=== PATIENT | male | born 1975 | race Two or more races ===

== ENCOUNTER 2016-07-07 12:03 | Inpatient (IN) | payer OTHER ==
--- NOTE | 2016-07-07 12:33 | ED Physician Chart ---
Chief Complaint/HPI - Patient Information Date Seen:: 07/07/16 Time Seen:: 12:15 Chief Complaint:: sent from office of Dr. Tatum for SOB, chest pain, tachycardia History of Present Illness:: Pt. put on Lisinopril recently for HTN and recently started on insulin went for F/U with Dr. Tatum. He was sent to ER with note from Dr. Tatum: "Pt. presents with BP 160/101, HR 120, with occasional SOB/CP. Plz eval further , Thank you." Pt. states he had abnl. "blood work" drawn 2 weeks ago. HR is now 103. Initial EKG shows sinus tach with nl. axis and "ST elev, probable normal early repol pattern". No obvious J-point elevation in contiguous leads and no chest pain at this time. Allergies:: Allergies Allergy/AdvReac Type Severity Reaction Status Date / Time No Known Allergies Allergy Verified 07/07/16 12:27 Historian:: Patient, Medical Records (Note from in Hx P I.) Review of Systems - Review of Systems General/Constitutional: No fever Skin: No skin lesions Eyes: No loss of vision ENT: No earache Neck: No neck pain Cardio Vascular: Chest pain, No palpitations Pulmonary: SOB (No SOB now, pt. states SOB with exertion, associated by pt. with "pulled hamstring".) GI: No nausea, No vomiting, No diarrhea Musculoskeletal: No bone or joint pain Psychiatric: No prior psych history Hematopoietic: No bruising Neurological: No syncope Past Medical History - Past Medical History Past Medical History: HTN, DM (Lisinopri, HCTZ, Insulin), Other (Pt. states he' s had hx of "rapid heart rate" since knee surg. 4 - 5 years ago.) Family History: Cancer (breast CA) Social History: Non Smoker, No Alcohol Surgical History: None, other (R knee surg. 4 - 5 yrs. ago.) Medication: Reviewed (lisinopril, Insulin, HCTZ) Family Medical History - Family Member Mother Living Status: Still Living Other Medical History: breast Ca Physical Exam - Physical Examination General/Constitutional: Awake, Well-developed, well-nourished, Alert, No distress, GCS 15, Non-toxic appearing, Ambulatory Head: Atraumatic Eyes: Lids, conjuctiva normal, PERRL, EOMI Skin: Nl inspection ENMT: External ears, nose nl, TM canals nl, Nasal exam nl, Lips, teeth, gums nl , Oropharynx nl, Tonsils nl Neck: Nontender Respiratory: Nl effort/Exclusion, Clear to Auscultation Cardio Vascular: RRR, No murmur, gallop, rubs GI: No tenderness/rebounding/guarding : No CVA tenderness Extremities: No tenderness or effusion Neuro/Psych: Alert/oriented, Normal motor strength, Normal gait (c/o pain L leg from "pulled hamstring".), No focal deficits Misc: Normal back Labs/Radiology/EKG Results - Lab Results Results: EKG: sinus tach with nl. axis and "ST elev, probable normal early repol pattern ". No obvious J-point elevation in contiguous leads and no chest pain at this time. CXR: "no acute pulmonary process." Hgb A1C 11.5 BUN/creat = 10/0.6 Gluc. 312 BNP naormal Amylase and Lipase normal CPK and CKMB low or normal. Trop. 0.01. WBC 11.9, H/H =15.0/43.5 PT nl at 10.8 (INR = 1/080) PTT = 25..2 1355: Heart rate still 105. No pain. 118/79 ED Septic Shock - . Is Septic Shock (SBP<90, OR Lactate>4 mmol\\L) present?: No Reassessment (Disposition) - Reassessment Reassessment Condition:: Improved - Diagnosis Diagnosis:: 1. Acute tachycardia with hx of dyspnea and HTN 2. Hyperglycemia, pt. recently given insulin, but has not yet taken it. - Patient Disposition Accepting Physician:: Dr. Espinoza Time Called:: 1350 Time Responded:: 14:00 Discussion with Medical Provider:: Dr. Espinoza will admit, if pt. willing to stay. Pt. is willing to be admitted to observation. Dr. Espinoza will be called for orders. Condition at Disposition:: Improved ED Discharge Plan - Patient Disposition Admit/Discharge/Transfer: Acute Care w/in this hosp Condition at Disposition: Improved
[2016-07-07] MEDS ORDERED: Aspirin 81mg Chewable Tab PO STA (12:38)
[2016-07-07] MEDS ORDERED: NITROGLYCERIN OINT 2% 1 INCH PACKET TP STA (12:39)
[2016-07-07] MEDS ORDERED: Aspirin 81mg Chewable Tab ONE (12:49)
[2016-07-07] MEDS ORDERED: NITROGLYCERIN OINT 2% 1 INCH PACKET TP ONE (12:49)
[2016-07-07 13:02] LABS: % EOSINOPHILS 0.8 % (0.0-5.0); % LYMPHOCYTES 19.6 % (20.0-50.0); % MONOCYTES 8.2 % (2.0-10.0); % NEUTROPHILS 71.4 % (40.0-80.0); HEMATOCRIT 43.5 % (39.0-49.0); MEAN CELL VOLUME 90.4 fl (80-99); MEAN CORPUSCULAR HEMOGLOBIN 31.3 pg (26.0-30.0); MEAN CORPUSCULAR HGB CONC 34.6 pg (28.0-36.0); MEAN PLATELET VOLUME 9.1 fl; NEUTROPHILE ABSOLUTE 8.5 Th/cmm (1.8-8.0); PLATELET COUNT 220 Th/cmm (150-400); RED BLOOD COUNT 4.81 Mil/cmm (4.30-5.70); RED CELL DISTRIBUTION WIDTH 12.4 % (11.5-20.0); WHITE BLOOD COUNT 11.9 Th/cmm (4.8-10.8)
[2016-07-07 13:08] LABS: INR 1.08 (0.5-1.4); PROTHROMBIN TIME (TEST) 10.8 SECONDS (9.5-11.5)
[2016-07-07 13:14] LABS: ALB/GLOB RATIO 0.8 (1.0-1.8); ALKALINE PHOSPHATASE 72 U/L (34-104); AMYLASE SERUM 32 U/L (29-103); ANION GAP 13.3 (7.0-16.0); BILIRUBIN,TOTAL 0.6 mg/dL (0.3-1.0); BUN - UREA NITROGEN 10 mg/dL (7-25); BUN/CREATININE RATIO 16.7; CALCIUM SERUM 9.7 mg/dL (8.6-10.3); CARBON DIOXIDE 26.4 mEq/L (21.0-31.0); CHLORIDE 94 mEq/L (98-107); CREATININE - SERUM 0.6 mg/dL (0.7-1.3); GLUCOSE 312 mg/dL (70-105); LIPASE 18 U/L (11-82); POTASSIUM SERUM 3.7 mEq/L (3.5-5.1); SGOT 27 U/L (13-39); SGPT/ALT 27 U/L (7-52); SODIUM SERUM 130 mEq/L (136-145)
[2016-07-07 13:24] LABS: CREATINE KINASE MB 0.7 ng/mL (0.6-6.3)
[2016-07-07 13:28] LABS: BNP 9.2 pg/mL (5.0-100.0)
--- NOTE | 2016-07-07 13:36 | Diagnostic Imaging Report ---
Portable chest x-ray HISTORY: Cough The heart size appears somewhat generous. No focal pulmonary processes. No hilar or mediastinal abnormalities. IMPRESSION: No acute pulmonary processes
[2016-07-07 14:59] LABS: URINE BILIRUBIN NEGATIVE (NEGATIVE); URINE BLOOD NEGATIVE (NEGATIVE); URINE COLOR YELLOW; URINE GLUCOSE (UA) 500 mg/dL (NEGATIVE); URINE KETONE TRACE mg/dL (NEGATIVE); URINE PROTEIN NEGATIVE (NEGATIVE); URINE UROBILINOGEN 0.2 E.U./dL (0.2 - 1.0)
[2016-07-07 15:00] LABS: URINE BACTERIA FEW /hpf (NONE SEEN); URINE EPITHELIAL CELLS FEW /lpf (FEW); URINE RBC 0-2 /hpf (0-5); URINE WBC 0-2 /hpf (0-5)
[2016-07-07] MEDS: INSULIN ASPART, RECOMBINANT 100 UNITS/ML SUBQ SCH ×2 (17:29→21:12)
--- NOTE | 2016-07-07 21:43 | Admit Criteria Form ---
Admit Criteria Forms - Admit Criteria Diagnosis: TELEMETRY CARE Telemetry Admission Guidelines (Place 'X' for any and all applicable criteria): Admission to telemetry [A] may be indicated for ANY ONE of the following(1)(2)(3 )(4)(5): [x ]I. Cardiac disease, including ANY ONE of the following (9)(10)(11)(12)( 13): [ ]a) Postacute CT [ ]b) Low-risk patients with ST-segment elevation CT who have undergone successful percutaneous coronary intervention [ ]c) Unstable angina [ ]d) Suspected CT (until it is ruled out) [ ]e) Post cardiac surgery (first 48 to 72 hours unless complications occur) [ x]f) Acute arrhythmias (including significant tachycardia or bradycardia) [B] [ ]g) Firing of an implantable cardioverter defibrillator [C] [ ]h) Suspected pacemaker or implantable cardioverter defibrillator malfunction (10) [ ]i) New administration or adjustment of an antiarrhythmic drug [D ] [ ]j) Child admitted for acute congestive heart failure [ ]j) Long QT syndrome [ ]k) Advanced heart block (eg, second-degree Mobitz type II, third- degree heart block) [ ]l) Acute myocarditis or pericarditis [ ]m) Short-term (ambulatory or inpatient) monitoring after a cardiac procedure as indicated by ANY ONE of the following [E]: [ ]i) Electrophysiologic studies [ ]ii) Percutaneous coronary intervention with stent placement [ ]iii) Pacemaker placement with cardiac conduction defect [ ]iv) Implantable cardiac defibrillator placement [ ]II. Drug overdose or poisoning with substance that causes arrhythmias or QT prolongation (eg, phenothiazines, sympathomimetic agents, cyclic antidepressants, digitalis, antiarrhythmic drugs)(15) [ ]III. Short-term (ambulatory or inpatient) monitoring after therapeutic or diagnostic procedure requiring conscious sedation or anesthesia (eg, endoscopy, elective cardioversion) [ ]IV. Acute cerebrovascular even[F](18) [ ]V. Massive blood transfusion (eg, at least 10 units of packed red blood cells in 24 hours) [ ]. Variceal bleeding after endoscopy, sclerotherapy, or IV vasopressin [ ]VII. Uncorrected electrolyte abnormalities associated with an increased risk of dangerous arrhythmia [G]; examples include [ ]a) Hyperkalemia with attributable ECG changes [ ]b) Potassium greater than 6.5 mmol/L (mEq/L) in a patient without history of chronic renal disease [ ]c) Prolonged QT attributed to hypokalemia, hypomagnesemia, or hypocalcemia [ ]VIII.Unexplained syncope or other neurologic event suspected of being due to arrhythmia due to a finding that increases risk; examples include(19)(20)(21): [ ]a) High-risk ECG findings (eg, bifascicular block, bradycardia, abnormal QT interval, ventricular pre- excitation) [ ]b) History of previous syncope due to arrhythmia [ ]c) Abnormal ventricular function (eg, reduced ejection fraction ) [ ]d) Exertional or supine syncope [ ]e) Concerning syncope characteristics (eg, sudden loss of consciousness without prodrome) [ ]f) Family history of sudden [ ]g) Use of arrhythmogenic medication [ ]h) Suspected cardiac ischemia [ ]i) Known channelopathy (eg, long QT syndrome, Brugada syndrome, or catecholaminergic paroxysmal ventricular tachycardia) [ ]j) Known structural heart disease (eg, hypertrophic cardiomyopathy , severe valvular disease) [ ]k) Palpitations preceding syncope The original [employer] content created by [employer] has been revised. The portions of the content which have been revised are identified through the use of italic text or in bold, and [employer] has neither reviewed nor approved the modified material. All other unmodified content is copyright [employer]. Please see references footnoted in the original [employer] edition 2016
[2016-07-08] MEDS: INSULIN ASPART, RECOMBINANT 100 UNITS/ML SUBQ SCH ×4 (06:34→22:05)
[2016-07-08 07:51] LABS: ALB/GLOB RATIO 0.8 (1.0-1.8); ALKALINE PHOSPHATASE 64 U/L (34-104); BILIRUBIN,TOTAL 0.6 mg/dL (0.3-1.0); BUN - UREA NITROGEN 12 mg/dL (7-25); BUN/CREATININE RATIO 17.1; CALCIUM SERUM 9.7 mg/dL (8.6-10.3); CARBON DIOXIDE 31.6 mEq/L (21.0-31.0); CHLORIDE 94 mEq/L (98-107); CHOLESTEROL 178 mg/dL (<200); CREATININE - SERUM 0.7 mg/dL (0.7-1.3); GLUCOSE 246 mg/dL (70-105); POTASSIUM SERUM 3.6 mEq/L (3.5-5.1); SGOT 22 U/L (13-39); SGPT/ALT 24 U/L (7-52); SODIUM SERUM 130 mEq/L (136-145); TRIGLYCERIDES 135 mg/dL (<150)
--- NOTE | 2016-07-08 12:14 | History & Physical ---
HISTORY OF PRESENT ILLNESS: Admitted to the Emergency Room with a diagnosis of uncontrolled hypertension and uncontrolled diabetes and noncompliance. This patient has been seen in our clinic few weeks ago. He is a 41-year-old male, obese, weighs more than 300 pounds and he came few weeks ago and to get regular routine lab work to be done and he was seen by other doctors in the past and he has not seen any doctors in the last 2 years according to him and we gave him all the routine labs to be done because he said he is diabetic and he is not on any medications and hypertensive and lab reports came on the day when he came yesterday to the clinic and his hemoglobin A1c was greater than 11.2, and the patient was also having shortness of breath and we could not even do an EKG because of his weight in our office and he was having uncontrolled hypertension and his systolic blood pressure was greater than 250 and diastolic was more than 120. Hence, we referred him to the Emergency Room in the [facility] to be evaluated for the same and after evaluation, the patient was found to have uncontrolled blood pressure as we said and his EKG showed ST elevation, but it was only in 1 lead and it was not in all the leads and his blood pressure has come down after administering the nitroglycerin according to the ER physician, and the patient's blood sugar was still high in 300s and he had a hemoglobin A1c greater than 11.2. Also, had exertional dyspnea. So at that time, the patient was admitted for further observation under tele and also I wanted to rule out his ST elevation and exertional dyspnea and also treat his uncontrolled hypertension and diabetes and hence we admitted him to the tele in the med/surg grant. FAMILY HISTORY: Noncontributory. SOCIAL HISTORY: He denies smoking or any toxic habits and he is working. ALLERGIES: None to any medication. PAST MEDICAL HISTORY: As mentioned above in the history of present illness, diabetes, obesity and hypertension. REVIEW OF SYSTEMS: The patient had exertional dyspnea and otherwise he did not look not in too much of a distress, but the patient was noncompliant and rest of the review of system was normal. Did not have any chest pain, no palpitations, no abdominal pain, no nausea, vomiting and no musculoskeletal issues, but neurologically, the patient complained of slight dizziness. Other than that, the rest of the review of the systems was normal. PHYSICAL EXAMINATION: VITAL SIGNS: This morning, the vital signs have come down with the medications that were administered and he is afebrile. His blood pressure is 120/74, pulse 93 and respirations were 18, and saturating on room air greater than 95% and his blood sugar this morning is 232 and on the tele it showed a sinus rhythm and I did request Dr. Erik Dang to evaluate him for cardiac component of his medical history. GENERAL: Not in any distress, obese person lying in the bed. HEENT: Atraumatic and normocephalic. Eyes: Pupils are reactive to light equally and bilaterally. NECK: Supple. LUNGS: Clear to auscultate. CARDIOVASCULAR: S1, S2 heard. No murmurs were appreciated. ABDOMEN: Soft and bowel sounds are present. GENITOURINARY: Normal male genitalia noted. EXTREMITIES: Had no clubbing, no cyanosis and no edema. ASSESSMENT: Uncontrolled hypertension, uncontrolled diabetes, noncompliant, abnormal EKG, rule out ofs-DE-[id number] myocardial infarction and exertional dyspnea and morbid obesity. PLAN: To admit him for observation and get his blood pressure under control and also to educate him about the importance of taking care of his diabetes and hypertension and give the medications as appropriately and once Dr. Erik Dang evaluates him and when he is stable, he will be discharged home with appropriate medications. [facility]# [id number]
--- NOTE | 2016-07-08 18:37 | Cardiology ---
The patient of Dr. Osmin Tatum. M-MODE ECHOCARDIOGRAM: Mitral valve: Anterior leaflet of the mitral valve shows normal excursion, EF velocity. Posterior leaflet of the mitral valve shows normal excursion. Left ventricular posterior wall shows increased thickness, normal excursion. Interventricular septum shows increased thickness, normal excursion, hypertrophy of the left ventricle, ejection fraction 55%. Left atrium normal. Aortic root shows normal dimension, normal excursion of aortic leaflets. CONCLUSION: Hypertrophy of the left ventricle, ejection fraction 55%. 2D ECHO: Long axis view showed normal sized left ventricle with hypertrophy of the left ventricle. Left atrium normal. Aortic root shows normal dimension, normal excursion of aortic leaflets. Short axis view mitral valve normal. Short axis view aortic valve normal. Apical four chamber view showed normal sized left ventricle with hypertrophy of the left ventricle. Left atrium normal. Right ventricular cavity, right atrium normal, no pericardial effusion. CONCLUSION: Hypertrophy of the left ventricle, ejection fraction 55%. Doppler study shows trace mitral regurgitation, prominent area consistent with full compliance of left ventricle. JOB# [id number]
[2016-07-09] MEDS: INSULIN ASPART, RECOMBINANT 100 UNITS/ML SUBQ SCH (06:58)
--- NOTE | 2016-07-10 01:10 | Consultation ---
The patient of Dr. Osmin Tatum HISTORY AND PHYSICAL: This is a 41-year-old morbidly obese male patient who came to the Emergency Room due to uncontrolled diabetes. The patient has poor compliance. The patient also had uncontrolled hypertension. The patient is not taking any medication at the present time. PAST MEDICAL HISTORY: Hypertension, diabetes, and obesity. FAMILY HISTORY: Unremarkable. SOCIAL HISTORY: No history of smoking or alcohol abuse. ALLERGIES: None. PHYSICAL EXAMINATION: VITAL SIGNS: Blood pressure 160/90, pulse 70, and respirations 20. HEAD: Normocephalic. No lumps or bumps. EYES: Pupils are equal and reactive to light. Fundi show AV nicking, sclerae white, and conjunctivae pink. NECK: Carotid 2+. Normal upstroke. JVD flat. Thyroid not palpable. Lymph nodes not palpable. CHEST: Shows increased AP diameter. No kyphosis or scoliosis. LUNGS: Bilateral bronchovesicular breath sounds. HEART: PMI fifth intercostal space with lateral to midclavicular line. S1, S2. No S3, S4. Systolic murmur, grade 2/6, lower left sternal border without radiation. ABDOMEN: Soft. Liver and spleen not palpable. No organomegaly. Bowel sounds active. NEUROLOGIC: No focal neurological deficit. EXTREMITIES: Peripheral pulses 2+. No pedal edema. CLINICAL IMPRESSION: Uncontrolled diabetes mellitus type 2, uncontrolled hypertension, morbid obesity. The patient has poor compliance. PLAN: The patient to have antihypertensive medication, diabetic medication. The patient given the diet and importance of compliance. JOB# [id number]
--- NOTE | 2016-07-18 18:23 | Discharge Summary ---
HOSPITAL COURSE: This patient was admitted on 07/07/2016 through the Emergency Room for the uncontrolled hyperglycemia and uncontrolled hypertension and noncompliance and probable cardiac pain and this patient was stabilized in the Emergency Room and was started on the hypertensive medications and Cardiology consult was sought to evaluate for the acute coronary syndrome and hypertensive cardiomyopathy and Dr. Erik Dang has done the echocardiogram and the patient was given the hypertensive medications and also diabetic medications and his blood sugars and hypertension has come under control and the patient was advised to stay for observation for one more day, but he was very anxious and after the echocardiogram was done and it was normal and he just signed against medical advice and discharge himself. On the day of discharge, according to Dr. Erik Dang, his vital signs were stable and he was afebrile 98.2 temperature, blood pressure was within range 138/92 and 100 pulse, 19 respirations and 95% saturation on the room air. The physical examination was within normal limits according to the chart. ASSESSMENT: At the time of the discharge. 1. Discharge against the medical advice. 2. Noncompliance. 3. Uncontrolled diabetes. 4. Uncontrolled hypertension. 5. Obesity. So, the plan is to call him from the clinic since he comes to my clinic as a patient, so I would ask the staff to call him and make an appointment arrangement in order to give him detailed medications list and then the plan of action for the next few months and also to review the diabetic labs in 3 months and I will follow the patient closely if he comes to the clinic. JOB# [id number]
== END 2016-07-09 09:15 | disposition left against medical advice (07) | DRG 420 ==
LOC: ER 12:03 → TELE 14:36
PROVIDERS: ADMIT General Practice; ATTEND General Practice
DX: E11.65 Type 2 diabetes mellitus with hyperglycemia (principal); Z68.43 Body mass index [BMI] 50.0-59.9, adult; I11.9 Hypertensive heart disease without heart failure; E66.01 Morbid (severe) obesity due to excess calories; Z80.3 Family history of malignant neoplasm of breast; Z98.890 Other specified postprocedural states; Z91.14 Patient's other noncompliance with medication regimen
CPT/HCPCS: 36415-UA; 71010-TC; 80053-TC; 80061-TC; 81001-TC; 82150-TC; 82550-TC; 82553; 82948-90; 83036-90; 83690-TC; 83880-TC; 84484-TC; 85025-TC; 85610-TC; 85730-TC; 93005; J1815; Z7610